=== PATIENT | female | born 1940 ===

== ENCOUNTER 2019-05-23 08:29 | Outpatient (CLI) | payer OTHER | END 2019-05-23 08:30 | disposition home or self-care (01) | LOC: SONOGRAMA 08:29 | DX: E04.2 Nontoxic multinodular goiter (principal) ==

== ENCOUNTER 2019-10-31 11:10 | Outpatient (CLI) | payer OTHER | END 2019-10-31 11:14 | disposition home or self-care (01) | LOC: SONOGRAMA 11:10 | PROVIDERS: ATTEND Pathology Anatomic Pathology & Clinical Pathology | DX: E04.8 Other specified nontoxic goiter (principal) ==